=== PATIENT | male | born 1980 | race Two or more races ===

== ENCOUNTER 2022-05-22 13:13 | Observation (INO) ==
[2022-05-22 14:10] LABS: Basophils # (auto) 0.02 K/uL (0-0.2); Basophils % (auto) 0.3 %; Eosinophils # (auto) 0.12 K/uL (0-0.50); Eosinophils % (auto) 1.8 %; Hematocrit (blood only) 41.9 % (42.0-52.0); Hemoglobin 14.3 g/dl (14.0-18.0); Immature Granulocytes # (auto) 0.02 K/uL (0.01-0.20); Immature Granulocytes % (auto) 0.3 %; Lymphocytes # (auto) 2.54 K/uL (1.2-3.4); Lymphocytes % (auto) 37.9 %; Mean Corpuscular Hemoglobin 29.8 pg (25.0-34.0); Mean Corpuscular Hgb Conc 34.1 g/dL (32.0-36.0); Mean Corpuscular Volume 87.3 fL (80.0-100.0); Mean Platelet Volume 11.3 fL (9.4-12.4); Monocytes # (auto) 0.73 K/uL (0.11-0.59); Monocytes % (auto) 10.9 %; Neutrophils # (auto) 3.27 K/uL (1.40-6.50); Neutrophils % (auto) 48.8 %; Platelet Count 220 K/uL (130-400); RDW Coefficient of Variation 13.3 % (11.5-14.5); RDW Standard Deviation 42.5 fL (36.4-46.3)
--- NOTE | 2022-05-22 14:19 | XRay Report ---
SINGLE VIEW CHEST CLINICAL HISTORY: Atypical chest pain. FINDINGS: An AP, portable, upright chest radiograph is obtained. No prior studies are available for c omparison at the time of dictation. The cardiomediastinal silhouette is top normal for projection. Th e lungs and pleural spaces are clear. No pneumothorax is seen. The bony thorax is grossly intact. IMPRESSION: No acute cardiopulmonary abnormality. ACT 112: Negative or not required by law. Electronically signed by: Marbin Bernal M.D. 05/22/2022 2:17 PM
[2022-05-22 14:20] LABS: Albumin Globulin Ratio 1.3 (0.9-2); Albumin Level 3.8 gm/dl (3.4-5.0); Bilirubin,Total 0.3 mg/dl (0.2-1.0); Calcium 9.1 mg/dl (8.6-10.3); Est GFR (Non-African American) 84.6 ml/min; Potassium 3.6 mmol/L (3.5-5.1); Total Protein 6.8 gm/dl (6.0-8.3)
[2022-05-22 14:26] LABS: Troponin I High Sensitivity 8.5 pg/ml (0-20)
--- NOTE | 2022-05-22 14:28 | Emergency Department Note ---
Impression & Plan Chest pain, HTN (hypertension), Abnormal EKG ED Provider Note NAME: MARGARITO [id number] ROSE AGE: 42 SEX: M : 1980 ARRIVES VIA: Ambulance INFORMANT: Patient ED PROVIDER(S): Norm Paul DO CHIEF COMPLAINT: Chest pain HPI: Patient is a 42-year-old male who presents ER for midsternal chest pain. He has a past medical history of diabetes, hypertension and hyperlipidemia. He has been getting this for the past year. It got significantly worse yesterday and today. It is worse with exertion. Improves with rest. He denies any arm or jaw pain. He admits to a little bit of an upset stomach. No vomiting or diarrhea. No dysuria urgency or frequency. He describes as a sharp stabbing pain going through to his back when it occurs. He did get 324 of aspirin prior to arrival. He does not have any pain now. He does maybe get some shortness of breath with it but no arm or jaw pain. PAST MEDICAL HISTORY:See Below PAST SURGICAL HISTORY:See Below FAMILY HISTORY:See Below SOCIAL HISTORY:See Below HOME MEDICATIONS:See Below ALLERGIES:See Below VITALS:See Below PHYSICAL EXAMINATION: GENERAL: Sitting up in bed, alert, well appearing, well nourished, no distress, non-toxic EYE EXAM: normal conjunctiva. OROPHARYNX: no exudate, no erythema, lips, buccal mucosa, and tongue normal and mucous membranes are moist NECK: supple, no nuchal rigidity, no adenopathy, non-tender LUNGS: Clear to auscultation. Normal chest wall mechanics HEART: no murmurs, S1 normal and S2 normal ABDOMEN: abdomen soft, non-tender, normo-active bowel sounds, no masses, no rebound or guarding. UPPER EXTREMITIES: upper extremities are grossly normal. LOWER EXTREMITIES: No pitting edema. Calves are equal bilateral NEURO EXAM: Normal sensorium, cranial nerves II-XII grossly intact, normal speech, no gross weakness of arms, no gross weakness of legs. MEDICAL DECISION MAKING: Patient is a 42-year-old male with a past medical history of diabetes, hypertension and hyperlipidemia that presents the ER for midsternal chest pain associated with shortness of breath which comes and goes with exertion and resolves with rest. This is gotten worse recently over the past several days. He arrives pain-free. IV was established blood work was obtained. Labs show no significant leukocytosis or anemia. BMP with slightly elevated chloride at 108. LFTs bilirubin and lipase was normal. Troponin was negative. COVID-negative. Chest x-ray was clean. EKG with T wave inversions. Patient was given aspirin prior to arrival. Pain-free while in the ER and was discussed with the h ospitalist for further evaluation management and treatment. Discussed with Pt concerning signs and symptoms to watch out for. Pt was instructed to follow up with their PCP and discussed with the patient their option to return to the ED at anytime for persistent or worsening symptoms. The appropriate anticipatory guidance and out-patient management, including indications for return to the emergency department, were explained at length to the patient and understood. Triage Nursing notes reviewed. Limited review of prior medical records performed Vital Signs: reviewed and remarkable for HTN Differential diagnosis: Cardiac ischemia, aortic dissection, pulmonary embolism, pneumothorax, pneumonia, pericarditis, myocarditis, esophageal rupture, GERD, cholecystitis, pancreatitis, musculoskeletal, as well as other pathologies. ER treatment provided: See below Diagnostics interpreted by me include EKG and cardiac monitoring as listed below: -Cardiac Monitoring: An order was placed for continuous cardiac monitoring. The monitor shows a rate of 70 with sinus rhythm. -ECG: Sinus rhythm rate 74 Left axis T wave inversion in the inferior leads as well as V4 through V6 QTc 437 -Laboratory studies:Interpreted by me as stated above in MDM and shown below. Imaging studies: Xrays: As interpreted by me: Portable AP upright 1 view of the chest shows no focal infiltrate CTs show: none Consultation(s): Discussed with Dr. Ruiz for further evaluation management treatment Procedures:none Critical Care: None Past Med/Surg History Medical History (Updated 05/22/22 @ 20:16 by Norm Paul DO) Chest pain Diabetes mellitus HLD (hyperlipidemia) HTN (hypertension) Family History (Updated 05/22/22 @ 16:25 by Gonzalez Lomas MD) Mother Heart disease Age 60s, passed Brother Heart disease CT at age 66 Allergies Allergies Allergy/AdvReac Type Severity Reaction Status Date / Time No Known Allergies Allergy Verified 05/22/22 15:31 Home Meds Home Medications Medication Instructions Recorded Confirmed ammonium lactate 12 % lotion 1 applic topical BID 05/22/22 05/22/22 atorvastatin 20 mg tablet 20 mg PO HS 05/22/22 05/22/22 clotrimazole 1 % topical cream 1 applic topical BID 05/22/22 05/22/22 hydrochlorothiazide 25 mg tablet 25 mg PO HS 05/22/22 05/22/22 lisinopril 40 mg tablet 40 mg PO HS 05/22/22 05/22/22 metformin 850 mg tablet 850 mg PO BID 05/22/22 05/22/22 Results & Data (ED) Vital Signs Vital Signs - 24 hr 05/22/22 13:24 05/22/22 13:24 05/22/22 13:24 Temperature 36.7 C Temperature Source Oral Pulse Rate 72 Pulse Rate [Apical] 73 Pulse Rate from SpO2 Sensor Pulse Rhythm Regular Pulse Rhythm [Apical] Regular Pulse Strength Normal Pulse Strength [Apical] Normal Respiratory Rate 17 17 Respiratory Effort / Characteristics Non-Labored Non-Labored Respiratory Depth Normal Normal Respiratory Pattern Regular Regular Blood Pressure 151/101 H Blood Pressure [Right Arm] 151/101 H Blood Pressure Mean 117 Blood Pressure Mean [Right Arm] 117 Pulse Oximetry 100 100 Oxygen Delivery Method Room Air Room Air Room Air Sepsis Recent Fever Within 48 Hours No Sepsis New/Unexplained Change in Mental Status No Sepsis Action Taken by Nursing No Action Required 05/22/22 13:52 05/22/22 14:18 05/22/22 15:28 Temperature Temperature Source Pulse Rate 71 Pulse Rate [Apical] 70 Pulse Rate from SpO2 Sensor Pulse Rhythm Pulse Rhythm [Apical] Pulse Strength Pulse Strength [Apical] Respiratory Rate 16 Respiratory Effort / Characteristics Respiratory Depth Respiratory Pattern Blood Pressure Blood Pressure [Right Arm] 150/104 H Blood Pressure Mean Blood Pressure Mean [Right Arm] 119 Pulse Oximetry 100 98 Oxygen Delivery Method Room Air Room Air Sepsis Recent Fever Within 48 Hours Sepsis New/Unexplained Change in Mental Status Sepsis Action Taken by Nursing 05/22/22 17:21 05/22/22 13:23 05/22/22 13:30 Temperature Temperature Source Pulse Rate 70 74 Pulse Rate [Apical] 64 Pulse Rate from SpO2 Sensor 69 74 Pulse Rhythm Pulse Rhythm [Apical] Pulse Strength Pulse Strength [Apical] Respiratory Rate 18 23 27 H Respiratory Effort / Characteristics Respiratory Depth Respiratory Pattern Blood Pressure Blood Pressure [Right Arm] 135/89 Blood Pressure Mean Blood Pressure Mean [Right Arm] 104 Pulse Oximetry 95 98 99 Oxygen Delivery Method Room Air Sepsis Recent Fever Within 48 Hours Sepsis New/Unexplained Change in Mental Status Sepsis Action Taken by Nursing 05/22/22 14:00 05/22/22 14:12 05/22/22 14:12 Temperature Temperature Source Pulse Rate 71 66 Pulse Rate [Apical] Pulse Rate from SpO2 Sensor 70 Pulse Rhythm Pulse Rhythm [Apical] Pulse Strength Pulse Strength [Apical] Respiratory Rate 18 15 Respiratory Effort / Characteristics Respiratory Depth Respiratory Pattern Blood Pressure 143/99 H Blood Pressure [Right Arm] Blood Pressure Mean 113 Blood Pressure Mean [Right Arm] Pulse Oximetry 99 Oxygen Delivery Method Sepsis Recent Fever Within 48 Hours Sepsis New/Unexplained Change in Mental Status Sepsis Action Taken by Nursing 05/22/22 14:30 05/22/22 15:00 05/22/22 15:28 Temperature Temperature Source Pulse Rate 65 68 73 Pulse Rate [Apical] Pulse Rate from SpO2 Sensor 65 70 73 Pulse Rhythm Pulse Rhythm [Apical] Pulse Strength Pulse Strength [Apical] Respiratory Rate 23 18 21 Respiratory Effort / Characteristics Respiratory Depth Respiratory Pattern Blood Pressure Blood Pressure [Right Arm] Blood Pressure Mean Blood Pressure Mean [Right Arm] Pulse Oximetry 98 99 98 Oxygen Delivery Method Sepsis Recent Fever Within 48 Hours Sepsis New/Unexplained Change in Mental Status Sepsis Action Taken by Nursing 05/22/22 15:28 05/22/22 15:30 05/22/22 15:30 Temperature Temperature Source Pulse Rate 66 Pulse Rate [Apical] Pulse Rate from SpO2 Sensor 65 Pulse Rhythm Pulse Rhythm [Apical] Pulse Strength Pulse Strength [Apical] Respiratory Rate 21 Respiratory Effort / Characteristics Respiratory Depth Respiratory Pattern Blood Pressure 150/104 H 147/103 H Blood Pressure [Right Arm] Blood Pressure Mean 119 117 Blood Pressure Mean [Right Arm] Pulse Oximetry 100 Oxygen Delivery Method Sepsis Recent Fever Within 48 Hours Sepsis New/Unexplained Change in Mental Status Sepsis Action Taken by Nursing 05/22/22 16:00 05/22/22 16:00 05/22/22 16:30 Temperature Temperature Source Pulse Rate 70 Pulse Rate [Apical] Pulse Rate from SpO2 Sensor 69 Pulse Rhythm Pulse Rhythm [Apical] Pulse Strength Pulse Strength [Apical] Respiratory Rate 18 Respiratory Effort / Characteristics Respiratory Depth Respiratory Pattern Blood Pressure 171/110 H 149/101 H Blood Pressure [Right Arm] Blood Pressure Mean 130 117 Blood Pressure Mean [Right Arm] Pulse Oximetry 98 Oxygen Delivery Method Sepsis Recent Fever Within 48 Hours Sepsis New/Unexplained Change in Mental Status Sepsis Action Taken by Nursing 05/22/22 16:30 05/22/22 17:00 05/22/22 17:00 Temperature Temperature Source Pulse Rate 68 69 Pulse Rate [Apical] Pulse Rate from SpO2 Sensor 68 68 Pulse Rhythm Pulse Rhythm [Apical] Pulse Strength Pulse Strength [Apical] Respiratory Rate 22 19 Respiratory Effort / Characteristics Respiratory Depth Respiratory Pattern Blood Pressure 135/89 Blood Pressure [Right Arm] Blood Pressure Mean 104 Blood Pressure Mean [Right Arm] Pulse Oximetry 98 95 Oxygen Delivery Method Sepsis Recent Fever Within 48 Hours Sepsis New/Unexplained Change in Mental Status Sepsis Action Taken by Nursing 05/22/22 17:30 05/22/22 17:30 05/22/22 18:00 Temperature Temperature Source Pulse Rate 65 Pulse Rate [Apical] Pulse Rate from SpO2 Sensor 62 Pulse Rhythm Pulse Rhythm [Apical] Pulse Strength Pulse Strength [Apical] Respiratory Rate 17 Respiratory Effort / Characteristics Respiratory Depth Respiratory Pattern Blood Pressure 141/89 H 151/100 H Blood Pressure [Right Arm] Blood Pressure Mean 106 117 Blood Pressure Mean [Right Arm] Pulse Oximetry 95 Oxygen Delivery Method Sepsis Recent Fever Within 48 Hours Sepsis New/Unexplained Change in Mental Status Sepsis Action Taken by Nursing 05/22/22 18:00 05/22/22 18:24 Temperature Temperature Source Pulse Rate 66 72 Pulse Rate [Apical] Pulse Rate from SpO2 Sensor 66 Pulse Rhythm Pulse Rhythm [Apical] Pulse Strength Pulse Strength [Apical] Respiratory Rate 22 Respiratory Effort / Characteristics Respiratory Depth Respiratory Pattern Blood Pressure Blood Pressure [Right Arm] Blood Pressure Mean Blood Pressure Mean [Right Arm] Pulse Oximetry 99 Oxygen Delivery Method Sepsis Recent Fever Within 48 Hours Sepsis New/Unexplained Change in Mental Status Sepsis Action Taken by Nursing Laboratory Data 05/22/22 13:32 05/22/22 13:32 Lab Results 05/22/22 05/22/22 05/22/22 Range/Units 13:32 13:32 16:45 WBC 6.70 (4.8-10.8) K/ul RBC 4.80 (4.70-6.10) M/uL Hgb 14.3 (14.0-18.0) g/dl Hct 41.9 L (42.0-52.0) % MCV 87.3 (80.0-100.0) fL MCH 29.8 (25.0-34.0) pg MCHC 34.1 (32.0-36.0) g/dL RDW Std Deviation 42.5 (36.4-46.3) fL RDW Coeff of Monica 13.3 (11.5-14.5) % Plt Count 220 (130-400) K/uL MPV 11.3 (9.4-12.4) fL Immature Gran % (Auto) 0.3 % Neut % (Auto) 48.8 % Lymph % (Auto) 37.9 % Jewell % (Auto) 10.9 % Eos % (Auto) 1.8 % Baso % (Auto) 0.3 % Neut # (Auto) 3.27 (1.40-6.50) K/uL Lymph # (Auto) 2.54 (1.2-3.4) K/uL Jewell # (Auto) 0.73 H (0.11-0.59) K/uL Eos # (Auto) 0.12 (0-0.50) K/uL Baso # (Auto) 0.02 (0-0.2) K/uL Immature Gran # (Auto) 0.02 (0.01-0.20) K/uL Sodium 138 (136-145) mmol/L Potassium 3.6 (3.5-5.1) mmol/L Chloride 108 H (98-107) mmol/L Carbon Dioxide 27 (21-32) mmol/L Anion Gap 3 (3-11) BUN 16 (6-23) mg/dl Creatinine 1.07 (0.6-1.4) mg/dl Est Cr Clr Drug Dosing 82.0 ml/min Est GFR ( Amer) 98.0 ml/min Est GFR (Non-Af Amer) 84.6 ml/min BUN/Creatinine Ratio 15.0 (10-20) Glucose 117 H (70-99(Fasting)) mg/dl POC Glucose 109 H (70-99) mg/dl Calcium 9.1 (8.6-10.3) mg/dl Total Bilirubin 0.3 (0.2-1.0) mg/dl AST 16 (13-39) U/L ALT 35 (7-52) U/L Alkaline Phosphatase 45 (34-104) U/L Troponin I High Sens 8.5 (0-20) pg/ml Total Protein 6.8 (6.0-8.3) gm/dl Albumin 3.8 (3.4-5.0) gm/dl Globulin 3.0 (2.5-4.0) gm/dl Albumin/Globulin Ratio 1.3 (0.9-2) Lipase 44 (11-82) U/L SARS-CoV-2, RNA, NAAT (NEGATIVE) 05/22/22 Range/Units 17:35 WBC (4.8-10.8) K/ul RBC (4.70-6.10) M/uL Hgb (14.0-18.0) g/dl Hct (42.0-52.0) % MCV (80.0-100.0) fL MCH (25.0-34.0) pg MCHC (32.0-36.0) g/dL RDW Std Deviation (36.4-46.3) fL RDW Coeff of Monica (11.5-14.5) % Plt Count (130-400) K/uL MPV (9.4-12.4) fL Immature Gran % (Auto) % Neut % (Auto) % Lymph % (Auto) % Jewell % (Auto) % Eos % (Auto) % Baso % (Auto) % Neut # (Auto) (1.40-6.50) K/uL Lymph # (Auto) (1.2-3.4) K/uL Jewell # (Auto) (0.11-0.59) K/uL Eos # (Auto) (0-0.50) K/uL Baso # (Auto) (0-0.2) K/uL Immature Gran # (Auto) (0.01-0.20) K/uL Sodium (136-145) mmol/L Potassium (3.5-5.1) mmol/L Chloride (98-107) mmol/L Carbon Dioxide (21-32) mmol/L Anion Gap (3-11) BUN (6-23) mg/dl Creatinine (0.6-1.4) mg/dl Est Cr Clr Drug Dosing ml/min Est GFR ( Amer) ml/min Est GFR (Non-Af Amer) ml/min BUN/Creatinine Ratio (10-20) Glucose (70-99(Fasting)) mg/dl POC Glucose (70-99) mg/dl Calcium (8.6-10.3) mg/dl Total Bilirubin (0.2-1.0) mg/dl AST (13-39) U/L ALT (7-52) U/L Alkaline Phosphatase (34-104) U/L Troponin I High Sens (0-20) pg/ml Total Protein (6.0-8.3) gm/dl Albumin (3.4-5.0) gm/dl Globulin (2.5-4.0) gm/dl Albumin/Globulin Ratio (0.9-2) Lipase (11-82) U/L SARS-CoV-2, RNA, NAAT NEGATIVE (NEGATIVE) Administered Medications Insulin Aspart (Insulin Aspart Per Unit Charge) 0 units SC ACHS ROS Stop: 06/21/22 16:29 Last Admin: 05/22/22 16:47 Dose: Not Given Documented By: RS Imaging Data Radiologist's Impression: Chest X-Ray 05/22/22 13:52 SINGLE VIEW CHEST CLINICAL HISTORY: Atypical chest pain. FINDINGS: An AP, portable, upright chest radiograph is obtained. No prior studies are available for comparison at the time of dictation. The cardiomedias tinal silhouette is top normal for projection. The lungs and pleural spaces are clear. No pneumothorax is seen. The bony thorax is grossly intact. IMPRESSION: No acute cardiopulmonary abnormality. ACT 112: Negative or not required by law. Electronically signed by: Marbin Bernal M.D. 05/22/2022 2:17 PM Discharge Plan Visit Data Chief Complaint: Chest Pain Stated Complaint: CHEST PAIN ED Provider: Norm Paul Discharge Problem: Chest pain, HTN (hypertension), Abnormal EKG Forms Stand Alone Forms: My [facility] Prescriptions Prescriptions: No Action atorvastatin 20 mg Tablet 20 mg PO HS ammonium lactate 12 % Lotion 1 applic TOPICAL BID metformin 850 mg Tablet 850 mg PO BID hydrochlorothiazide 25 mg Tablet 25 mg PO HS lisinopril 40 mg Tablet 40 mg PO HS clotrimazole 1 % Cream 1 applic TOPICAL BID Referrals Referrals: Kranthi Weinstein DO [Primary Care Provider] -
--- NOTE | 2022-05-22 15:53 | History & Physical Report ---
Date of Service May 22, 2022 Assessment & Plan (1) Chest pain: Plan: Chest Pain, Angina - Worsening angina with exertion, improves with rest. Now occuring rarely at rest in last few weeks-months - Trop normal on admit, trended -EKG: Normal sinus rhythm. T wave inversions appreciated in V5/V6, sinusoidal and V4. Discussed with [facility], these were not present on his prior EKGs. Discussed with [facility] [place] to clarify [place] episode. Atypical MSK/reproducible chest pain in the past no history of SC/Stents, no surgery on record, no medication allergies -Heart score with moderate risk due to hypertension, hyperlipidemia, DM, concerning story, EKG changes. - Based on sx recommend stress testing. Treadmill stress echo ordered. He is able to jog at baseline. - Mother had a heart attack at age 68. Denies other FHX of cardiac disease. Follow on telemetry overnight Nitro on-call for chest pain If rapid rise in troponin, heparinized and contact interventional cardiology (2) HTN (hypertension): Plan: - Lisinopril 40mg hs continued (3) HLD (hyperlipidemia): Plan: - atorvastatin continued (4) Diabetes mellitus: Plan: - Type 2 DM - Metforming BID held - Basal bolus SSI -Glucose checks AC/at bedtime, goal [id number] Heart healthy, DM 2 diet up until midnight, then n.p.o. for stress testing Plan DVT prophylaxis: Heparin pending stress test CODE STATUS: Full code Disposition: Heart healthy, DM 2 until midnight, n.p.o. for stress test in the morning Disposition: Medical telemetry for chest pain eval History of Present Illness Primary Care Provider: DO Miguel A White is a 42y M who presents with worsening chest pain. Per ER has occured over the last year with exertion, improves with rest. Gradually worsening in intensity and more easily brought out. More recently he has had episodes of chest pain at rest. Episodes have been lasting longer and take more time to imp rove with rest. Episodes generally last 3-4 hours and gradually improve with rest. Symptoms happen almost daily, but consistently improve with rest. Episodes at rest began a few months ago. With the chest pain he has a little shortness of breath not na, but fagiues and is short of breath easily from going up stairs. No sweating with episodes. Per patient: Patient is exclusively Wolof-speaking, history is collected with assistance of organizational effectiveness consultant video services. He presents from [facility], reports that he has had progressively worsening chest pain with exertion which in the last few weeks to months has been occurring at rest as well. His symptoms passed with rest and usually last anywhere from 1 to 3 hours. 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 To his knowledge he did not require any heart stents and did not have surgery or bypass. He does not think he has any reduced pumping function of his heart. He reports he has been having episodes of chest pain for about 1 year which were brought out with exercise, and consistently improved with rest but which seem to be worsening and now occurring with less and less exercise. He now gets chest pain and shortness of breath going up a flight of stairs. He has not passed out, has not had lightheadedness or dizziness. He has not had orthopnea, or leg swelling. He does have a history of high blood pressure and diabetes. He does not use tobacco products or vape. He reports he takes atorvastatin, hydrochlorothiazide, lisinopril, and metformin. Denies taking other medications. No medication allergies. He reports he came in due to the pain worsening and being more severe, although it has abated since being in the hospital. He is able to jog for a stress test if needed. Medical History: Reviewed Medications: Reviewed Surgical History: Reviewed Family history: Reviewed Allergies: Reviewed Social History: no tobacco or vape use. Former drug use, fenantyl, no recent. Code Status:Full Code Allergies Allergy/AdvReac Type Severity Reaction Status Date / Time No Known Allergies Allergy Verified 05/22/22 15:31 Home Medications Medication Instructions Recorded Confirmed Type ammonium lactate 12 % lotion 1 applic topical BID 05/22/22 05/22/22 History atorvastatin 20 mg tablet 20 mg PO HS 05/22/22 05/22/22 History clotrimazole 1 % topical cream 1 applic topical BID 05/22/22 05/22/22 History hydrochlorothiazide 25 mg tablet 25 mg PO HS 05/22/22 05/22/22 History lisinopril 40 mg tablet 40 mg PO HS 05/22/22 05/22/22 History metformin 850 mg tablet 850 mg PO BID 05/22/22 05/22/22 History Past Med/Surg History Medical History (Updated 05/22/22 @ 16:15 by Gonzalez Lomas MD) Chest pain Diabetes mellitus HLD (hyperlipidemia) HTN (hypertension) Family History (Updated 05/22/22 @ 16:25 by Gonzalez Lomas MD) Mother Heart disease Age 60s, passed Brother Heart disease [place] at age 66 Review of Systems Review of Systems: All systems reviewed & are unremarkable except as noted in HPI & below Physical Exam Physical Exam: General: A&Ox3. NAD. Cooperative. HEENT: Atraumatic, normocephalic. PERLAA. EoM intact. Vision/hearing intact. Pulm: CTAB A&P. -wheezes, -rales, -rhonchi. Symmetrical chest rise. No increased work of breathing. No respiratory distress. Cardiac: RRR, -mrg. Radial pulses intact and symmetrical. No reproducible chest pain on palpation Abdominal: Nontender, nondistended, soft. BS present. Ext: Warm, dry. No swelling/edema Results & Data Results & Data Vital Signs (Past 12 Hours) Vital Signs Temp Pulse Pulse Resp BP BP Pulse Ox 05/22/22 15:28 70 16 150/104 H 98 05/22/22 14:18 71 05/22/22 13:52 100 05/22/22 13:24 73 17 151/101 H 100 05/22/22 13:24 05/22/22 13:24 36.7 C 72 17 151/101 H 100 O2 Del Method 05/22/22 15:28 Room Air 05/22/22 14:18 05/22/22 13:52 Room Air 05/22/22 13:24 Room Air 05/22/22 13:24 Room Air 05/22/22 13:24 Room Air PG Care Time/CCT Total # of Minutes Spent Total Time Spent with Patient: Total time spent is greater than 50% in coordination of care (as documented) at patient's floor/unit and/or counseling patient: Coding Level of Care Code 37339 INT INP/OBS CARE 3/75MIN Diagnoses Chest pain R07.9 HTN (hypertension) I10 HLD (hyperlipidemia) E78.5 Diabetes mellitus E11.9
[2022-05-22] MEDS ORDERED: DEXTROSE 50% 50 ML SYRINGE IV PRN (16:19)
[2022-05-22] MEDS ORDERED: GLUCOSE 40% GEL 15 GM TUBE PO PRN (16:19)
[2022-05-22] MEDS ORDERED: GLUCAGON FOR INJ 1 MG VIAL SQ PRN (16:19)
[2022-05-22] MEDS ORDERED: CARBOHYDRATES FOR HYPOGLYCEMIA PO PRN (16:19)
[2022-05-22] MEDS ORDERED: GLUCOSE 10 TAB/TUBE PO PRN (16:19)
[2022-05-22] MEDS: INSULIN ASPART PER UNIT CHARGE SC SCH ×2 (16:47→21:08)
[2022-05-22] MEDS: hydroCHLOROthiazide 25 MG TAB PO SCH (21:07)
[2022-05-22] MEDS: lisinopril 40 MG TAB PO SCH (21:07)
[2022-05-22] MEDS: ATORVASTATIN 20 MG TAB PO SCH (21:07)
[2022-05-22] MEDS: CLOTRIMAZOLE 1% CR 15 GM TUBE TOP SCH ×2 (21:07→23:40)
[2022-05-22] MEDS: LANTUS PER UNIT CHARGE SQ SCH (21:08)
[2022-05-23 06:51] LABS: Basophils # (auto) 0.02 K/uL (0-0.2); Basophils % (auto) 0.3 %; Eosinophils % (auto) 3.1 %; Hematocrit (blood only) 39.4 % (42.0-52.0); Hemoglobin 13.9 g/dl (14.0-18.0); Immature Granulocytes # (auto) 0.01 K/uL (0.01-0.20); Immature Granulocytes % (auto) 0.2 %; Lymphocytes % (auto) 43.1 %; Mean Corpuscular Hemoglobin 30.2 pg (25.0-34.0); Mean Corpuscular Hgb Conc 35.3 g/dL (32.0-36.0); Mean Corpuscular Volume 85.5 fL (80.0-100.0); Mean Platelet Volume 11.2 fL (9.4-12.4); Monocytes # (auto) 0.63 K/uL (0.11-0.59); Monocytes % (auto) 9.7 %; Neutrophils # (auto) 2.84 K/uL (1.40-6.50); Neutrophils % (auto) 43.6 %; Platelet Count 216 K/uL (130-400); Red Blood Count 4.61 M/uL (4.70-6.10)
[2022-05-23] MEDS: INSULIN ASPART PER UNIT CHARGE SC SCH ×4 (08:12→21:48)
[2022-05-23 08:33] LABS: Estimated Average Glucose 160 mg/dl; Hemoglobin A1C 7.2 % (4.5-5.6)
[2022-05-23 09:37] LABS: Calcium 8.9 mg/dl (8.6-10.3); Potassium 3.4 mmol/L (3.5-5.1)
[2022-05-23] MEDS ORDERED: POTASSIUM CHLORIDE CRTAB 20 MEQ TABCR PO STA (09:38)
[2022-05-23 09:42] LABS: BUN Creatinine Ratio 13.5 (10-20); Creatinine Clr Calc Pharmacy 80.3 ml/min; Est GFR (African American) 101.4 ml/min; Est GFR (Non-African American) 87.5 ml/min
[2022-05-23] MEDS: LANTUS PER UNIT CHARGE SQ SCH ×2 (10:30→21:48)
[2022-05-23] MEDS: ASPIRIN 81 MG ECTAB PO SCH (10:31)
[2022-05-23] MEDS: CLOTRIMAZOLE 1% CR 15 GM TUBE TOP SCH ×2 (10:31→21:49)
--- NOTE | 2022-05-23 15:07 | XCELERA ---
[id number]
--- NOTE | 2022-05-23 17:35 | Electrocardiogram Report ---
Test Reason : Blood Pressure : / mmHG Vent. Rate : 074 BPM Atrial Rate : 074 BPM P-R Int : 146 ms QRS Dur : 082 ms QT Int : 394 ms P-R-T Axes : 057 000 -15 degrees QTc Int : 437 ms Poor data quality, interpretation may be adversely affected Normal sinus rhythm Voltage criteria for left ventricular hypertrophy T wave abnormality, consider lateral ischemia Abnormal ECG No previous ECGs available Confirmed by Mor Holt ([id number]) on 05/23/2022 5:35:30 PM Referred By: Confirmed By:Jovanny Holt
[2022-05-23] MEDS ORDERED: OPTIRAY 320 500ml IV ONE (17:37)
--- NOTE | 2022-05-23 19:21 | CT Scan Report ---
CT angio chest PE protocol CT DOSE: 373.51 mGy.cm HISTORY: 42 years-old Male with episodes of chest pain, recent travel; r/o PE. Acute chest pain wit h recent travel TECHNIQUE: Multiple CTA images of the chest were obtained after the intravenous administration of 97 ml Optiray. Coronal and sagittal MIPS were obtained from the axial data set and were submitted for r eview. All measurements were obtained according to NASCET criteria. A dose lowering technique was ut ilized adhering to the principles of ALARA. COMPARISON: Chest radiograph 05/22/2022 FINDINGS: CTA: The heart is upper limits of normal in size. No pericardial effusion. Unremarkable thoracic aorta and pulmonary artery. No pulmonary emboli identified. CT CHEST: Unremarkable thyroid. No lymphadenopathy. Subcentimeter subpleural nodule adjacent to the left hemidi aphragm on image 25 series 4 suggestive of a benign lymph node. No pneumothorax, pleural effusion, ai rspace consolidation or overt. No suspicious pulmonary nodules or masses. Central airways appear to b e patent. There is no acute process of the imaged upper abdomen. Mild nonspecific right perinephric inflammator y stranding. Indeterminate 2.3 cm slightly hypoattenuating lesion within the right hepatic lobe on im age 27 series 2. No acute fracture. IMPRESSION: Unremarkable CTA of the chest. No pulmonary emboli identified. ACT 112: Negative or not required by law. The above report was generated using voice recognition software. It may contain grammatical, syntax o r spelling errors. Electronically signed by: Derek Pineda M.D. 05/23/2022 7:20 PM
[2022-05-23] MEDS ORDERED: PANTOprazole 40 MG TAB PO STA (20:22)
--- NOTE | 2022-05-23 20:48 | Hospitalist Progress Note ---
Date of Service May 23, 2022 Assessment & Plan (1) Chest pain: Plan: Multiple CAD risk factors including hypertension, hyperlipidemia, T2DM, and family history. Baseline EKG is abnormal with inferior and lateral ST changes. Stress echo performed today. No symptoms during the stress - no cp, no dyspnea, no dizziness. Hit 87% of max predicted HR. No WMAs or ischemic changes seen by cardiology. I briefly discussed the stress results with the reading loan assistant. Etiology of episodes? In light of recent travel from [place] will obtain CTA chest - r/o PE, etc. Could stress be falsely negative?? Watch overnight for recurrent symptoms. Recheck EKG in am. (2) HTN (hypertension): Plan: Controlled Cont HCTZ Cont Lisinopril (3) HLD (hyperlipidemia): Plan: Cont atorvastatin Check lipids in am (4) Diabetes mellitus: Plan: Adequate control Hold metformin due to CTA chest contrast a1c 7.2% (5) Hypokalemia: Plan: replete repeat level am check mag as well Admission and Anticipated Discharge Date Admission Date: May 22, 2022 Subjective my interview with the patient was assisted by use of the [employer] service I saw the patient post-stress test he was resting comfortably in bed via the site interpreter he confirmed he did NOT have chest pain, dizziness, or dyspnea on exertion during the stress test patient states he was feeling good at the present time with respect to the chest pain he states it has been occurring off/on for 8-9 months was mainly exertional but now gets it at rest some times points to center + left side of chest as location just got transferred 17 days ago from [place] to [facility] skilled nursing denies any continuous leg pains denies cough denies prior h/o tobacco use (but uses THC) denies asthma history Review of Systems Review of Systems: gen - feels well, good appetite, no weight loss cv - no orthopnea pulm - no cough GI - some abdominal discomforts with eating but not on regular basis; no nausea/ emesis Physical Exam Physical Exam: gen - NAD, comfortable neck - no JVD mouth - MMM heart - RRR, s1 s2, no murmur, no rub lungs - CTA b/l abd - soft NT ND BS+ ext - no edema, pulses 2+; handcuff and ankle cuffs present Results & Data Results & Data Vital Signs (Past 12 Hours) Vital Signs Temp Pulse Pulse Resp BP Pulse Ox O2 Del Method 05/23/22 19:48 36.7 C 72 18 132/85 99 Room Air 05/23/22 14:23 78 05/23/22 14:42 36.9 C 58 L 20 118/77 97 Room Air 05/23/22 11:17 36.4 C L 71 16 109/72 95 Room Air Laboratory Results Laboratory Results - last 24 hr 05/22/22 05/23/22 05/23/22 23:50 06:05 06:05 WBC 6.50 RBC 4.61 L Hgb 13.9 L Hct 39.4 L MCV 85.5 MCH 30.2 MCHC 35.3 RDW Std Deviation 40.0 RDW Coeff of Monica 13.0 Plt Count 216 MPV 11.2 Immature Gran % (Auto) 0.2 Neut % (Auto) 43.6 Lymph % (Auto) 43.1 [place] % (Auto) 9.7 Eos % (Auto) 3.1 Baso % (Auto) 0.3 Neut # (Auto) 2.84 Lymph # (Auto) 2.80 [place] # (Auto) 0.63 H Eos # (Auto) 0.20 Baso # (Auto) 0.02 Immature Gran # (Auto) 0.01 Sodium 137 Potassium 3.4 L Chloride 102 Carbon Dioxide 26 Anion Gap 9 BUN 14 Creatinine 1.04 Est Cr Clr Drug Dosing 80.3 Est GFR ( Amer) 101.4 Est GFR (Non-Af Amer) 87.5 BUN/Creatinine Ratio 13.5 Glucose 84 POC Glucose Estimat Average Glucose Hemoglobin A1c Calcium 8.9 Nasal Screen MRSA (PCR) Negative 05/23/22 05/23/22 05/23/22 06:05 06:40 08:10 WBC RBC Hgb Hct MCV MCH MCHC RDW Std Deviation RDW Coeff of Monica Plt Count MPV Immature Gran % (Auto) Neut % (Auto) Lymph % (Auto) [place] % (Auto) Eos % (Auto) Baso % (Auto) Neut # (Auto) Lymph # (Auto) [place] # (Auto) Eos # (Auto) Baso # (Auto) Immature Gran # (Auto) Sodium Potassium Chloride Carbon Dioxide Anion Gap BUN Creatinine Est Cr Clr Drug Dosing Est GFR ( Amer) Est GFR (Non-Af Amer) BUN/Creatinine Ratio Glucose POC Glucose 91 100 H Estimat Average Glucose 160 Hemoglobin A1c 7.2 H Calcium Nasal Screen MRSA (PCR) 05/23/22 05/23/22 05/23/22 11:54 16:52 20:08 WBC RBC Hgb Hct MCV MCH MCHC RDW Std Deviation RDW Coeff of Monica Plt Count MPV Immature Gran % (Auto) Neut % (Auto) Lymph % (Auto) [place] % (Auto) Eos % (Auto) Baso % (Auto) Neut # (Auto) Lymph # (Auto) [place] # (Auto) Eos # (Auto) Baso # (Auto) Immature Gran # (Auto) Sodium Potassium Chloride Carbon Dioxide Anion Gap BUN Creatinine Est Cr Clr Drug Dosing Est GFR ( Amer) Est GFR (Non-Af Amer) BUN/Creatinine Ratio Glucose POC Glucose 106 H 101 H 123 H Estimat Average Glucose Hemoglobin A1c Calcium Nasal Screen MRSA (PCR) PG Care Time/CCT Total # of Minutes Spent Total Time Spent with Patient: Total time spent is greater than 50% in coordination of care (as documented) at patient's floor/unit and/or counseling patient: Coding Level of Care Code 22579 SUB INP/OBS CARE 3/50MIN Diagnoses Chest pain R07.9 HTN (hypertension) I10 HLD (hyperlipidemia) E78.5 Diabetes mellitus E11.9 Hypokalemia E87.6
[2022-05-23] MEDS: hydroCHLOROthiazide 25 MG TAB PO SCH (21:27)
[2022-05-23] MEDS: lisinopril 40 MG TAB PO SCH (21:27)
[2022-05-23] MEDS: ATORVASTATIN 20 MG TAB PO SCH (21:38)
[2022-05-24 07:48] LABS: BUN Creatinine Ratio 15.7 (10-20); Calcium 9.6 mg/dl (8.6-10.3); Est GFR (African American) 84.5 ml/min; Est GFR (Non-African American) 72.9 ml/min; Magnesium 1.7 mg/dl (1.7-2.4); Potassium 3.7 mmol/L (3.5-5.1)
[2022-05-24] MEDS: ASPIRIN 81 MG ECTAB PO SCH (08:39)
[2022-05-24] MEDS: INSULIN ASPART PER UNIT CHARGE SC SCH ×2 (08:39→12:05)
[2022-05-24] MEDS ORDERED: PANTOprazole 40 MG TAB PO SCH (09:00)
[2022-05-24] MEDS: LANTUS PER UNIT CHARGE SQ SCH (09:23)
[2022-05-24] MEDS: CLOTRIMAZOLE 1% CR 15 GM TUBE TOP SCH (09:23)
--- NOTE | 2022-05-24 12:11 | Discharge Summary ---
Date of Service May 24, 2022 Admission HPI Per Admitting Provider Miguel A is a 42y M who presents with worsening chest pain. Per ER has occured over the last year with exertion, improves with rest. Gradually worsening in intensity and more easily brought out. More recently he has had episodes of chest pain at rest. Episodes have been lasting longer and take more time to improve with rest. Episodes generally last 3-4 hours and gradually improve with rest. Symptoms happen almost daily, but consistently improve with rest. Episodes at rest began a few months ago. With the chest pain he has a little shortness of breath not na, but fagiues and is short of breath easily from going up stairs. No sweating with episodes. Per patient: Patient is exclusively Yoruba-speaking, history is collected with assistance of glaze wiper video services. He presents from [facility], reports that he has had progressively worsening chest pain with exertion which in the last few weeks to months has been occurring at rest as well. His symptoms passed with rest and usually last anywhere from 1 to 3 hours. He was told he had a preheart attack in 2019 while in [place], however this was in the setting of fentanyl use. To his knowledge he did not require any heart stents and did not have surgery or bypass. He does not think he has any reduced pumping function of his heart. He reports he has been having episodes of chest pain for about 1 year which were brought out with exercise, and consistently improved with rest but which seem to be worsening and now occurring with less and less exercise. He now gets chest pain and shortness of breath going up a flight of stairs. He has not passed out, has not had lightheadedness or dizziness. He has not had orthopnea, or leg swelling. He does have a history of high blood pressure and diabetes. He does not use tobacco products or vape. He reports he takes atorvastatin, hydrochlorothiazide, lisinopril, and metformin. Denies taking other medications. No medication allergies. He reports he came in due to the pain worsening and being more severe, although it has abated since being in the hospital. He is able to jog for a stress test if needed. Medical History: Reviewed Medications: Reviewed Surgical History: Reviewed Family history: Reviewed Allergies: Reviewed Social History: no tobacco or vape use. Former drug use, fenantyl, no recent. Code Status:Full Code Discharge Exam gen - NAD, comfortable neck - no JVD mouth - MMM heart - RRR, s1 s2, no murmur, no rub lungs - CTA b/l abd - soft NT ND BS+ ext - no edema, pulses 2+; handcuff and ankle cuffs present Discharge Data Allergies Allergy/AdvReac Type Severity Reaction Status Date / Time No Known Allergies Allergy Verified 05/22/22 15:31 Consultations 05/22/22 15:29 ED Decision to Admit Stat Ordered Studies 05/23/22 15:50 CT angio chest PE protocol Routine Hospital Course (1) Chest pain: Multiple CAD risk factors including hypertension, hyperlipidemia, T2DM, and family history. Baseline EKG is abnormal with inferior and lateral ST changes. Stress echo performed today. No symptoms during the stress - no cp, no dyspnea, no dizziness. Hit 87% of max predicted HR. No WMAs or ischemic changes seen by cardiology. I briefly discussed the stress results with the reading order runner. Etiology of episodes? In light of recent travel from [place] will obtain CTA chest - r/o PE, etc. Could stress be falsely negative?? Watch overnight for recurrent symptoms. Recheck EKG in am. (2) HTN (hypertension): Controlled Cont HCTZ Cont Lisinopril (3) HLD (hyperlipidemia): Cont atorvastatin Check lipids in am (4) Diabetes mellitus: Adequate control Hold metformin due to CTA chest contrast a1c 7.2% (5) Hypokalemia: replete repeat level am check mag as well Discharge Plan Discharge Items [facility] Reason For Visit: CHEST PAIN Discharge Diagnosis: 1. chest pain - no evidence of heart attack; stress test negative - but cardiology f/u needed 2. asymmetric septum of heart on echocardiogram - cardiology f/u needed 3. high blood pressure 4. type 2 diabetes 5. cyst of right lobe of liver (2.3cm) - repeat ultrasound or CT liver protocol advised Activity: Per Instructions section Lifting: No more than 10 pounds Exercise/Sports: Wait until after follow-up appointment Non-emergency contact: Primary Care Provider and [employer] Production Call non-emergency contact if: you have any medication questions, your symptoms worsen and your pain is not controlled Follow-up/Referrals: Mor Holt MD [Physician] - (see Dr Holt or one of his partners in 2 weeks; dx - chest pain episodes, abnormal echocardiogram. ) Kranthi Weinstein DO [Primary Care Provider] - Diet: Carb Consistent or DM2 and Heart Healthy Addtl Attending Provider Instructions: 1. Repeat BMP (basic metabolic panel) on 05/25/22. If creatinine is stable on BMP can resume metformin on 05/25/22. Until repeat creatinine has returned please HOLD METFORMIN. 2. No heavy exertional activity or heavy lifting until seen by cardiology for follow-up. 3. REDUCE the dose of hydrochlorothiazide to 12.5mg once a day and move administration time to THE MORNING. Next dose due on the AM of 05/25/22. 4. START aspirin 81mg daily. First dose on 05/25/22. 5. Patient will need an ultrasound of liver, MRI liver, or CT liver protocol to check on the abnormality of the liver (2.3cm cyst vs nodule vs other). Pending Studies at Discharge: No Skilled Items Patient informed of condition?: Yes DNR: No Discharge Level of Care: Other Communicable Disease: No Discharge Prognosis: Stable Lines: None Urinary Catheter: No Medications and DC Order Prescriptions: New aspirin 81 mg Tablet,Delayed Release (Dr/Ec) 81 mg PO QAM Qty: 90 1RF Continued atorvastatin 20 mg Tablet 20 mg PO HS ammonium lactate 12 % Lotion 1 applic TOPICAL BID lisinopril 40 mg Tablet 40 mg PO HS clotrimazole 1 % Cream 1 applic TOPICAL BID Changed hydrochlorothiazide 25 mg Tablet 12.5 mg PO QAM Qty: 30 0RF Held metformin 850 mg Tablet 850 mg PO BID Hold Instructions: Resume on 05/25/22. Check basic metabolic panel on 05/25/22. If creatinine is stable can resume metformin at that time. Patient received CT contrast on 05/23/22. Johanny/Other Patient Handouts: A1C, Managing Type 2 Diabetes Admission Data Admit Date/Time: 05/22/22 15:57 Attending Provider: Maximino Jones Admit Provider: Gonzalez Lomas Primary Care Provider: Kranthi Weinstein Other Providers: Gonzalez Lomas Coding Diagnoses Chest pain R07.9 HTN (hypertension) I10 HLD (hyperlipidemia) E78.5 Diabetes mellitus E11.9 Hypokalemia E87.6
== END 2022-05-24 13:02 ==
LOC: ED 13:13 → 2W 13:13 → SUATTDRO 15:57 → 2W 20:22